=== PATIENT | male | born 1990 | race Caucasian/White ===

== ENCOUNTER 2018-07-12 10:19 | Emergency (ER) | payer OTHER ==
[2018-07-12] MEDS ORDERED: Tetan/Diph/Pertus SYR(Tdap)* 0.5 ML SYR(BOOSTRIX) use SYR IM ONE (10:41)
--- NOTE | 2018-07-12 11:14 | ED ---
Bite Injury/Animal - HPI Summary HPI Summary: Patient presents with dog bite to right inner elbow 3 days ago. He reports this was obtained by a friend's dog who is visiting him. The dog's shots are up -to-date. Patient is unsure about his last tetanus. He has been cleaning the area and it is scabbed over. He denies redness, swelling, drainage, numbness, tingling, weakness, fever, chills. He cleaned it really well and continues to apply antiseptic washes to keep it clean. He has not used ice or taken any pain medication as he reports it is not that bad. He's been able to use his upper extremity without restriction since. Has paperwork with him from the health Department today. - History of Current Complaint Chief Complaint: EDAnimalBite Stated Complaint: DOG BITE Time Seen by Provider: 07/12/18 10:29 Hx Obtained From: Patient Pain Intensity: 2 - Allergies/Home Medications Allergies/Adverse Reactions: Allergies Allergy/AdvReac Type Severity Reaction Status Date / Time No Known Allergies Allergy Verified 07/12/18 10:23 PMH/Surg Hx/FS Hx/Imm Hx Previously Healthy: Yes Endocrine/Hematology History: Denies: Hx Anticoagulant Therapy, Hx Blood Disorders, Autoimmune Disease - Immunization History Immunizations Up to Date: Unable to Obtain/Confirm Infectious Disease History: No Infectious Disease History: Denies: Hx of Known/Suspected MRSA, Traveled Outside the in Last 30 Days - Social History Occupation: Employed Part-time Lives: With Family - Alcohol Use: Occasionally Substance Use Type: Reports: Marijuana Hx Tobacco Use: No Smoking Status (MU): Never Smoked Tobacco Review of Systems Constitutional: Negative Negative: Fever, Chills, Fatigue Positive: no symptoms reported Positive: Myalgia. Negative: Arthralgia, Decreased ROM, Edema Positive: Bruising Neurological: Negative Psychological: Normal All Other Systems Reviewed And Are Negative: Yes Physical Exam Triage Information Reviewed: Yes Vital Signs On Initial Exam: Initial Vitals Temp Pulse Resp BP Pulse Ox 97.5 F 61 16 118/78 100 07/12/18 10:21 07/12/18 10:21 07/12/18 10:21 07/12/18 10:21 07/12/18 10:21 Vital Signs Reviewed: Yes Appearance: Positive: Well-Appearing, Well-Nourished, Pain Distress - mild Skin: Positive: Warm, Skin Color Reflects Adequate Perfusion, Dry - 3cm linear scabbed wound w/o erythema, edema, or d/c - no fever to touch - appears to have surrouding yellowing of the skin (healing bruise vs. cleaning medication?) - no FB palpated and pt does not believe a FB in retained Head/Face: Positive: Normal Head/Face Inspection Eyes: Positive: EOMI ENT: Positive: Hearing grossly normal Respiratory/Lung Sounds: Positive: Breath Sounds Present Cardiovascular: Positive: Pulses are Symmetrical in both Upper and Lower Extremities Musculoskeletal: Positive: Normal, Strength/ROM Intact Neurological: Positive: Normal, Sensory/Motor Intact, Alert, Oriented to Person Place, Time, CN Intact II-III Psychiatric: Positive: Normal Diagnostics - Vital Signs Vital Signs Temp Pulse Resp BP Pulse Ox 07/12/18 10:21 97.5 F 61 16 118/78 100 - Laboratory Lab Statement: Any lab studies that have been ordered have been reviewed, and results considered in the medical decision making process. Bite Injury Course/Dx - Course Course Of Treatment: Pt here w/ what appears to be a well healing dog bite of the Rt elbow. Pain is minimal. Unsure of last tetanus so this was given and health dept paperwork completed. Will provide with augmentin in the event he develops s/sx of infection however he may continue his current regimen. Also discussed importance of f/u on rabies status of the dog since scene painter of the dog is not well known to pt. Spoke w/ Skip at the [facility] and he will contact the pt to coordinate care moving forward. - Diagnoses Provider Diagnosis: Dog bite of right elbow Discharge - Sign-Out/Discharge Documenting (check all that apply): Patient Departure - Discharge Plan Condition: Stable Disposition: HOME Prescriptions: Amoxicillin/Clavulanate TAB* [Augmentin TAB 875*] 875 mg PO BID #20 tab Patient Education Materials: Animal Bite (ED) Referrals: [facility]FERR[facility] [Outside] Additional Instructions: You've sustained an animal bite by an animal of unknown rabies status. It is important that you follow up with health department for further management - they will call you later today. Your wound appears to be clean today. You may continue to wash and apply antibacterial medication as you have been. *If you develop redness, swelling, purulent drainage or streaking, start your Augmentin antibiotic and follow up with a primary care provider or return to the emergency department. For pain you may take ibuprofen alternating with Tylenol and apply ice to the area. *If he develops headache, nausea, fevers or chills, return to the emergency department. - Billing Disposition and Condition Condition: STABLE Disposition: Home
[2018-07-12 11:47] VITALS: BP 116/58
== END 2018-07-12 11:46 | disposition home or self-care (01) ==
LOC: ED 10:19
DX: S51.051A Open bite, right elbow, initial encounter (principal); W54.0XXA Bitten by dog, initial encounter; Y92.9 Unspecified place or not applicable
CPT/HCPCS: 90471; 90715; 99282

== ENCOUNTER 2018-10-16 09:27 | Emergency (ER) | payer OTHER ==
[2018-10-16 09:54] VITALS: BP 112/65
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
== END 2018-10-16 12:07 | disposition home or self-care (01) ==
LOC: UCEAST 09:27
DX: S09.90XA Unspecified injury of head, initial encounter (principal); S40.022A Contusion of left upper arm, initial encounter; V48.5XXA Car driver injured in noncollision transport accident in traffic accident, initial encounter; Y92.410 Unspecified street and highway as the place of occurrence of the external cause; M50.222 Other cervical disc displacement at C5-C6 level
CPT/HCPCS: 70450; 72125; 81003; 99211; G0463